=== PATIENT | female | born 1990 | race Caucasian/White ===

== ENCOUNTER 2021-11-07 10:01 | Day surgery (SDC) | payer BC ==
[~2021-11-07 10:01] MED LIST: Lactated Ringers 1,000 ML IV SCH
[2021-11-07] MEDS ORDERED: fentaNYL 100 MCG/2 ML SDV ONE (10:58)
[2021-11-07] MEDS ORDERED: Propofol 200 MG/20 ML SDV ONE ×3 (10:58→12:50)
== END 2021-11-07 14:30 | disposition home or self-care (01) ==
LOC: VM.SDS 10:01 → MERGE 10:01 → VM.SDS 14:30
PROVIDERS: ATTEND Family Medicine
DX: K52.9 Noninfective gastroenteritis and colitis, unspecified (principal); K62.89 Other specified diseases of anus and rectum; F32.A Depression, unspecified; F41.1 Generalized anxiety disorder
CPT/HCPCS: 00811; J2704; J3010; J7120

== ENCOUNTER 2023-04-07 19:30 | Emergency (ER) | payer OTHER, BC ==
[2023-04-07] MEDS ORDERED: Ketorolac 30 MG/ML SDV IM ONE (20:04)
== END 2023-04-07 20:40 | disposition home or self-care (01) ==
LOC: VM.ED 19:30
DX: S52.501A Unspecified fracture of the lower end of right radius, initial encounter for closed fracture (principal)
CPT/HCPCS: 73110-RT; 96372; 99283; J1885